=== PATIENT | female | born 1995 | race Caucasian/White ===

== ENCOUNTER 2019-04-04 16:24 | Emergency (ER) | payer BC ==
[2019-04-04] MEDS ORDERED: Zofran 4 MG/2 ML VIAL IV ONE (17:31)
[2019-04-04] MEDS ORDERED: Sodium Chloride 0.9% 1000 ML 1,000 ML IV STA (17:31)
[2019-04-04] MEDS ORDERED: Zofran 4 MG/2 ML VIAL ONE (17:35)
[2019-04-04] MEDS ORDERED: Sodium Chloride 0.9% 1000 ML 1,000 ML ONE (17:35)
[2019-04-04 17:40] LABS: BASOPHIL % 0.2 % (0.0-0.4); Basophil (Absolute #) 0.02 (0-0.4); Eosinophil % 1.4 % (0.00-5.0); Eosinophil (Absolute #) 0.15 (0-0.5); Granulocyte Absolute (ANC) 7.22 (1.4-6.9); Granulocytes % 67.8 % (36.0-66.0); Hematocrit 44.2 % (35-47); Hemoglobin 14.3 gm/dl (12.0-16.0); Lymphocyte (Absolute #) 2.54 (1.0-4.6); Lymphocytes % 23.9 % (24.0-44.0); Mean Corpuscular Hemoglobin 27.5 pg (26-32); Mean Corpuscular Hgb Concent. 32.4 g/dl (32-36); Mean Platelet Volume 11.9 fl (6-9.5); Monocyte (Absolute #) 0.71 (0.0-1.3); Monocytes % 6.7 % (0.0-12.0); Platelet Count 221 K/mm3 (150-450); Red Cell Distribution Width 13.7 % (11.5-14.0); White Blood Count 10.6 K/mm3 (4.0-10.5)
[2019-04-04 17:47] LABS: ALBUMIN 4.3 g/dL (3.5-5.0); ALKALINE PHOSPHATASE 70 U/L (38-126); AMYLASE 51 U/L (30-110); ANION GAP 13.6 MEQ/L (5-15); BLOOD UREA NITROGEN 13 mg/dL (7-17); CHLORIDE 107 mmol/L (98-107); Calcium 9.3 mg/dL (8.4-10.2); Carbon Dioxide 27 mmol/L (22-30); Creatinine 1 0.61 mg/dL (0.52-1.04); Glucose 117 mg/dL (74-106); LIPASE 59 U/L (23-300); Potassium 3.4 mmol/L (3.5-5.1); SGOT/AST 30 U/L (14-36); SGPT/ALT 26 U/L (0-35); SODIUM 144 mmol/L (137-145); Total Protein 7.6 g/dL (6.3-8.2)
[2019-04-04 17:54] LABS: Appearance SLIGHTLY CLOUDY (CLEAR); Bilirubin NEGATIVE (NEGATIVE); Blood LARGE Ery/ul (0-5); Glucose NEGATIVE (NEGATIVE); Ketones NEGATIVE (NEGATIVE); Leukocyte Esterase NEGATIVE (NEGATIVE); Mucus SLIGHT /HPF (NEGATIVE); Nitrite NEGATIVE (NEGATIVE); Protein,Urine Dip NEGATIVE (Negative); Specific Gravity 1.026 (1.005-1.025); Urobilinogen NEGATIVE mg/dL (0-1)
[2019-04-04 18:01] LABS: RBC >101 /HPF (0-2)
--- NOTE | 2019-04-04 18:17 | ERPHSYRPT ---
- History of Present Illness Time Seen by Provider: 04/04/19 17:15 Source: patient, family Exam Limitations: no limitations Patient Subjective Stated Complaint: Pt states that she hasn't felt good for almost 1.5 months, this week she has had N&V, diarrhea, sore throat, tender in abdomen, went to [facility] twice last week and was told that it was asthma and stated that they didn't do any testing Triage Nursing Assessment: Pt presents to the ER with pain in medial lower abdomen and the RUQm with palpatation, denies N&V today but had earlier in the week, vitals wnl, pulses normal, lungs clear, throat is red with no puscules seen, reports coughing and when she does it is blood tinged, doesn't appear to be in any distress Physician History: 23 y/o white female presents with 2 month h/o various sx including cough, n/v, fever, diarrhea, cp, sore throat and resolving rash. seen by pcp and given rx for one round of antibiotic of zpack and steroids. pt is a smoker. sx have not improved. pt also seen at [facility] ED twice without a work up and told she has bronchitis or viral illness. Timing/Duration: other (2 months) Severity: mild Modifying Factors: Improves With: nothing Associated Symptoms: nausea, vomiting, cough, chest pain Allergies/Adverse Reactions: No Known Drug Allergies Allergy (Verified 04/04/19 16:43) Hx Influenza Vaccination/Date Given: No - Review of Systems Constitutional: No Symptoms Eyes: No Symptoms Ears, Nose, & Throat: Throat Pain Respiratory: Cough Cardiac: Chest Pain Abdominal/Gastrointestinal: Nausea, Vomiting Genitourinary Symptoms: No Symptoms Musculoskeletal: No Symptoms Skin: No Symptoms Neurological: No Symptoms Psychological: No Symptoms Endocrine: No Symptoms Hematologic/Lymphatic: No Symptoms Immunological/Allergic: No Symptoms All Other Systems: Reviewed and Negative - Past Medical History Neurological History: No Pertinent History ENT History: No Pertinent History Cardiac History: No Pertinent History Respiratory History: No Pertinent History Endocrine Medical History: No Pertinent History Musculoskeletal History: No Pertinent History GI Medical History: GERD Psycho-Social History: Anxiety, Bipolar, Depression, Other Other Medical History: borderline personality disorder, PTSD - Past Surgical History Past Surgical History: No Neuro Surgical History: No Pertinent History Cardiac: No Pertinent History Respiratory: No Pertinent History Gastrointestinal: No Pertinent History Genitourinary: No Pertinent History Musculoskeletal: No Pertinent History Female Surgical History: No Pertinent History - Social History Smoking Status: Current every day smoker How long have you smoked: 11 years Exposure to second hand smoke: Yes Drug Use: none Patient Lives Alone: No - Female History Hx Last Menstrual Period: 04/01/2019 Hx Now: No - Nursing Vital Signs Nursing Vital Signs: Initial Vital Signs Temperature 97.9 F 04/04/19 16:30 Pain Scale Pain Intensity 7 - Physical Exam General Appearance: no apparent distress, alert, anxiety Eye Exam: PERRL/EOMI, eyes nml inspection Ears, Nose, Throat Exam: normal ENT inspection, moist mucous membranes Neck Exam: normal inspection, non-tender, supple, full range of motion Respiratory Exam: normal breath sounds, chest tenderness, lungs clear, airway intact, No respiratory distress Cardiovascular Exam: regular rate/rhythm, normal heart sounds, normal peripheral pulses Gastrointestinal/Abdomen Exam: soft, normal bowel sounds, No tenderness, No guarding Pelvic Exam: not done Back Exam: normal inspection, normal range of motion, No CVA tenderness, No vertebral tenderness Extremity Exam: normal inspection, normal range of motion, pelvis stable Neurologic Exam: alert, oriented x 3, cooperative, 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, normal mood/affect, nml cerebellar function, nml station & gait Skin Exam: normal color, warm, dry Lymphatic Exam: No adenopathy SpO2 Interpretation: normal SpO2: 95 O2 Delivery: Room Air - Course Nursing assessment & vital signs reviewed: Yes EKG Interpreted by Me: RATE (72), Sinus Rhythm, NORMAL AXIS, NORMAL INTERVALS, NORMAL QRS, Other (no comparison ekg) Ordered Tests: Active Orders 24 hr Category Date Time Status EKG-ER Only STAT Care 04/04/19 17:31 Active IV Insertion STAT Care 04/04/19 16:40 Active CHEST 1 VIEW (PORTABLE) Stat Exams 04/04/19 17:33 Taken AMYLASE Stat Lab 04/04/19 16:35 Completed CBC W DIFF Stat Lab 04/04/19 16:35 Completed CMP Stat Lab 04/04/19 16:35 Completed HCG,QUALITATIVE URINE Stat Lab 04/04/19 17:30 Completed LIPASE Stat Lab 04/04/19 16:35 Completed Lactic Acid Stat Lab 04/04/19 17:55 Completed [place] Screen Stat Lab 04/04/19 17:45 Completed TROPONIN Q3H Lab 04/04/19 16:35 Completed TROPONIN Q3H Lab 04/04/19 20:45 Ordered TROPONIN Q3H Lab 04/04/19 23:45 Ordered UA W/RFX UR CULTURE Stat Lab 04/04/19 17:30 Completed Medication Summary Discontinued Medications Generic Name Dose Route Start Last Admin Trade Name Freq PRN Reason Stop Dose Admin Sodium Chloride 1,000 mls @ 999 mls/hr 04/04/19 17:31 04/04/19 18:39 Sodium Chloride 0.9% 1000 Ml IV 04/04/19 18:31 Infused .Q1H1M STA Infusion Sodium Chloride Confirm 04/04/19 17:35 Sodium Chloride 0.9% 1000 Ml Administered 04/04/19 17:36 Dose 1,000 mls @ ud .ROUTE .STK-VTM ONE Ondansetron HCl 4 mg 04/04/19 17:31 04/04/19 17:38 Zofran 4 Mg/2 Ml Vial IV 04/04/19 17:32 4 mg STAT ONE Administration Ondansetron HCl Confirm 04/04/19 17:35 Zofran 4 Mg/2 Ml Vial Administered 04/04/19 17:36 Dose 4 mg .ROUTE .STK-MED ONE Lab/Rad Data: Laboratory Result Diagrams 04/04/19 16:35 04/04/19 16:35 Laboratory Results 04/04/19 04/04/19 04/04/19 Range/Units 18:25 17:55 17:45 WBC (4.0-10.5) K/mm3 RBC (4.1-5.4) M/mm3 Hgb (12.0-16.0) gm/dl Hct (35-47) % MCV (78-100) fl MCH (26-32) pg MCHC (32-36) g/dl RDW (11.5-14.0) % Plt Count (150-450) K/mm3 MPV (6-9.5) fl Gran % (36.0-66.0) % Eos # (Auto) (0-0.5) Absolute Lymphs (auto) (1.0-4.6) Absolute Monos (auto) (0.0-1.3) Lymphocytes % (24.0-44.0) % Monocytes % (0.0-12.0) % Eosinophils % (0.00-5.0) % Basophils % (0.0-0.4) % Absolute Granulocytes (1.4-6.9) Basophils # (0-0.4) Sodium (137-145) mmol/L Potassium (3.5-5.1) mmol/L Chloride (98-107) mmol/L Carbon Dioxide (22-30) mmol/L Anion Gap (5-15) MEQ/L BUN (7-17) mg/dL Creatinine (0.52-1.04) mg/dL Estimated GFR ML/MIN Glucose (74-106) mg/dL Lactic Acid 1.6 (0.4-2.0) Calcium (8.4-10.2) mg/dL Total Bilirubin (0.2-1.3) mg/dL AST (14-36) U/L ALT (0-35) U/L Alkaline Phosphatase (38-126) U/L Troponin I (0.000-0.034) ng/mL Serum Total Protein (6.3-8.2) g/dL Albumin (3.5-5.0) g/dL Amylase (30-110) U/L Lipase (23-300) U/L Urine Color (YELLOW) Urine Appearance (CLEAR) Urine pH (5-6) Ur Specific [place] (1.005-1.025) Urine Protein (Negative) Urine Ketones (NEGATIVE) Urine Blood (0-5) Unruly/ul Urine Nitrite (NEGATIVE) Urine Bilirubin (NEGATIVE) Urine Urobilinogen (0-1) mg/dL Ur Leukocyte Esterase (NEGATIVE) Urine WBC (Auto) (0-5) /HPF Urine RBC (Auto) (0-2) /HPF U Epithel Cells (Auto) (FEW) /HPF Urine Bacteria (Auto) (NEGATIVE) /HPF Urine Mucus (Auto) (NEGATIVE) /HPF Urine Culture Reflexed (NO) Urine Glucose (NEGATIVE) mg/dL Urine HCG, Qual (Negative) Monoscreen NEGATIVE (Negative) Influenza Type A Ag NEGATIVE (NEGATIVE) Influenza Type B Ag NEGATIVE (NEGATIVE) RSV (PCR) NEGATIVE (Negative) Group A Strep Antibody NEGATIVE (NEGATIVE) 04/04/19 04/04/19 04/04/19 Range/Units 17:30 17:30 16:35 WBC (4.0-10.5) K/mm3 RBC (4.1-5.4) M/mm3 Hgb (12.0-16.0) gm/dl Hct (35-47) % MCV (78-100) fl MCH (26-32) pg MCHC (32-36) g/dl RDW (11.5-14.0) % Plt Count (150-450) K/mm3 MPV (6-9.5) fl Gran % (36.0-66.0) % Eos # (Auto) (0-0.5) Absolute Lymphs (auto) (1.0-4.6) Absolute Monos (auto) (0.0-1.3) Lymphocytes % (24.0-44.0) % Monocytes % (0.0-12.0) % Eosinophils % (0.00-5.0) % Basophils % (0.0-0.4) % Absolute Granulocytes (1.4-6.9) Basophils # (0-0.4) Sodium (137-145) mmol/L Potassium (3.5-5.1) mmol/L Chloride (98-107) mmol/L Carbon Dioxide (22-30) mmol/L Anion Gap (5-15) MEQ/L BUN (7-17) mg/dL Creatinine (0.52-1.04) mg/dL Estimated GFR ML/MIN Glucose (74-106) mg/dL Lactic Acid (0.4-2.0) Calcium (8.4-10.2) mg/dL Total Bilirubin (0.2-1.3) mg/dL AST (14-36) U/L ALT (0-35) U/L Alkaline Phosphatase (38-126) U/L Troponin I < 0.012 (0.000-0.034) ng/mL Serum Total Protein (6.3-8.2) g/dL Albumin (3.5-5.0) g/dL Amylase (30-110) U/L Lipase (23-300) U/L Urine Color YELLOW (YELLOW) Urine Appearance SLIGHTLY CLOUDY (CLEAR) Urine pH 6.0 (5-6) Ur Specific [place] 1.026 (1.005-1.025) Urine Protein NEGATIVE (Negative) Urine Ketones NEGATIVE (NEGATIVE) Urine Blood LARGE (0-5) Unruly/ul Urine Nitrite NEGATIVE (NEGATIVE) Urine Bilirubin NEGATIVE (NEGATIVE) Urine Urobilinogen NEGATIVE (0-1) mg/dL Ur Leukocyte Esterase NEGATIVE (NEGATIVE) Urine WBC (Auto) NONE (0-5) /HPF Urine RBC (Auto) >101 (0-2) /HPF U Epithel Cells (Auto) NONE (FEW) /HPF Urine Bacteria (Auto) NONE (NEGATIVE) /HPF Urine Mucus (Auto) SLIGHT (NEGATIVE) /HPF Urine Culture Reflexed NO (NO) Urine Glucose NEGATIVE (NEGATIVE) mg/dL Urine HCG, Qual NEGATIVE (Negative) Monoscreen (Negative) Influenza Type A Ag (NEGATIVE) Influenza Type B Ag (NEGATIVE) RSV (PCR) (Negative) Group A Strep Antibody (NEGATIVE) 04/04/19 04/04/19 Range/Units 16:35 16:35 WBC 10.6 H (4.0-10.5) K/mm3 RBC 5.20 (4.1-5.4) M/mm3 Hgb 14.3 (12.0-16.0) gm/dl Hct 44.2 (35-47) % MCV 85.0 (78-100) fl MCH 27.5 (26-32) pg MCHC 32.4 (32-36) g/dl RDW 13.7 (11.5-14.0) % Plt Count 221 (150-450) K/mm3 MPV 11.9 H (6-9.5) fl Gran % 67.8 H (36.0-66.0) % Eos # (Auto) 0.15 (0-0.5) Absolute Lymphs (auto) 2.54 (1.0-4.6) Absolute Monos (auto) 0.71 (0.0-1.3) Lymphocytes % 23.9 L (24.0-44.0) % Monocytes % 6.7 (0.0-12.0) % Eosinophils % 1.4 (0.00-5.0) % Basophils % 0.2 (0.0-0.4) % Absolute Granulocytes 7.22 H (1.4-6.9) Basophils # 0.02 (0-0.4) Sodium 144 (137-145) mmol/L Potassium 3.4 L (3.5-5.1) mmol/L Chloride 107 (98-107) mmol/L Carbon Dioxide 27 (22-30) mmol/L Anion Gap 13.6 (5-15) MEQ/L BUN 13 (7-17) mg/dL Creatinine 0.61 (0.52-1.04) mg/dL Estimated GFR > 60.0 ML/MIN Glucose 117 H (74-106) mg/dL Lactic Acid (0.4-2.0) Calcium 9.3 (8.4-10.2) mg/dL Total Bilirubin 0.30 (0.2-1.3) mg/dL AST 30 (14-36) U/L ALT 26 (0-35) U/L Alkaline Phosphatase 70 (38-126) U/L Troponin I (0.000-0.034) ng/mL Serum Total Protein 7.6 (6.3-8.2) g/dL Albumin 4.3 (3.5-5.0) g/dL Amylase 51 (30-110) U/L Lipase 59 (23-300) U/L Urine Color (YELLOW) Urine Appearance (CLEAR) Urine pH (5-6) Ur Specific [place] (1.005-1.025) Urine Protein (Negative) Urine Ketones (NEGATIVE) Urine Blood (0-5) Unruly/ul Urine Nitrite (NEGATIVE) Urine Bilirubin (NEGATIVE) Urine Urobilinogen (0-1) mg/dL Ur Leukocyte Esterase (NEGATIVE) Urine WBC (Auto) (0-5) /HPF Urine RBC (Auto) (0-2) /HPF U Epithel Cells (Auto) (FEW) /HPF Urine Bacteria (Auto) (NEGATIVE) /HPF Urine Mucus (Auto) (NEGATIVE) /HPF Urine Culture Reflexed (NO) Urine Glucose (NEGATIVE) mg/dL Urine HCG, Qual (Negative) Monoscreen (Negative) Influenza Type A Ag (NEGATIVE) Influenza Type B Ag (NEGATIVE) RSV (PCR) (Negative) Group A Strep Antibody (NEGATIVE) - Progress Progress: unchanged Progress Note: 04/04/19 19:31 cxr-? right basilar infiltrate vs atelectasis Counseled pt/family regarding: lab results, diagnosis, need for follow-up, rad results - Departure Departure Disposition: Home Clinical Impression: Lung infiltrate Condition: Stable Critical Care Time: No Referrals: ADDIE TEJEDA [Primary Care Provider] - Additional Instructions: drink plenty of fluids. follow up with primary doctor for further management Prescriptions: Albuterol 8 gm Mdi Hfa [Ventolin Hfa MDI] 8 gm IH Q4H #1 hfa.aer.ad Cefdinir 300 mg PO BID 7 Days #14 capsule Ondansetron HCl [Zofran] 4 mg PO TID PRN #10 tablet PRN Reason: Nausea/Vomiting Prednisone 10 mg [Deltasone 10 mg] 10 mg PO TID #12 tablet
[2019-04-04 19:22] LABS: Group A Strep NEGATIVE (NEGATIVE); INFLUENZA A NEGATIVE (NEGATIVE); INFLUENZA B NEGATIVE (NEGATIVE); RESPIRATORY SYNCTIAL VIRUS NEGATIVE (Negative)
[2019-04-04 19:34] VITALS: O2SAT 95
[2019-04-04] MEDS ORDERED: solu-MEDROL 125 MG IV ONE (19:35)
[2019-04-04] MEDS ORDERED: ROCEPHIN 1 Gm-D5w 50 ml Bag** 1 G/50 ML IVPB IV STA (19:35)
[2019-04-04] MEDS ORDERED: solu-MEDROL 125 MG ONE (19:36)
[2019-04-04] MEDS ORDERED: ROCEPHIN 1 Gm-D5w 50 ml Bag** 1 G/50 ML IVPB IV ONE (19:36)
[2019-04-04 20:07] VITALS: BP 110/56; PULSE 68
--- NOTE | 2019-04-06 04:17 | XRAY ---
Exam: AP upright portable chest film from 04/04/2019. Comparison: None. Indication: Cough, fever, chills, diarrhea for about 2 months. Findings: The heart size and contour are normal. The level of inspiration is within normal limits, although a bit less than average. The alexa and mediastinal structures appear intact. There is questionable minimal airspace disease within the right infrahilar projection at the medial right lung base. Consider a follow-up PA and lateral chest film for further evaluation. The remainder of the lung wood appears clear. No vascular congestion, pneumothorax, or pleural fluid is seen. The bones appear intact. Impression: 1. Query minimal air space infiltrate at medial right lung base. Consider further evaluation with an upright two-view chest series with deep inspiration.
== END 2019-04-04 20:06 | disposition home or self-care (01) ==
LOC: ED 16:24
DX: R91.8 Other nonspecific abnormal finding of lung field (principal)
CPT/HCPCS: 36000; 36415; 71045; 80053; 81001; 82150; 83605; 83690; 84484; 84703; 85025; 86308; 87631; 87651; 93005; 96360; 96365; 96374; 96375; 99284; J0696; J2405; J2930